=== PATIENT | male | born 1940 | race Caucasian/White ===

== ENCOUNTER → 2018-09-03 | Outpatient (REF) | payer MEDICARE, BC ==
[~2018-09-03] MED LIST: AMLODIPINE10 MG PO; AMLODIPINE5 MG PO; AMOXICILLIN500 MG PO; BAYER ASPIRIN325 MG PO; BENAZEPRIL10 M1 PO; BENAZEPRIL20 M1 PO; FLEXERIL5 M1 PO; HYDROCHLOROT12.5 MG PO; KEFLEX500 M1 PO; LOTREL 5/101 CAP; LOTREL 5/101 CAP PO; LOTREL1 CA1 PO; NORVASC10 M1 PO; PRILOSEC40 MG PO; [UNRECOGNIZED DRUG - OTHER] XX
== END | disposition home or self-care (01) ==
LOC: LABSPEC 09:28
PROVIDERS: ATTEND Nurse Practitioner Adult Health
DX: L02.414 Cutaneous abscess of left upper limb (principal); B95.7 Other staphylococcus as the cause of diseases classified elsewhere

== ENCOUNTER → 2019-02-16 | Outpatient (REF) | payer MEDICARE, BC ==
[2019-02-16 10:05] LABS: HEMATOCRIT 48.4 % (39.0-50.0); HEMOGLOBIN 15.9 g/dl (14.0-18.0); MEAN CELL VOLUME 90.5 fL CALC (80.0-100.0); MEAN CORPUSCULAR HGB 29.7 pG CALC (26.0-32.0); MEAN CORPUSCULAR HGB CONC 32.9 g/L CALC (32.0-36.0); RED BLOOD COUNT 5.35 mill/uL (4.70-6.10); RED CELL DISTRI WIDTH 13.3 % (11.5-15.5)
[2019-02-16 10:28] LABS: ALBUMIN 3.8 g/dL (3.2-5.0); ALKALINE PHOSPHATASE 368 u/l (38-126); ANION GAP 13 (6-22 (CALC)); BILIRUBIN, TOTAL 0.8 mg/dL (0.0-1.4); BUN 17 mg/dL (8-23); BUN/CREATININE RATIO 15 (12-20 (CALC)); CALCULATED LDLCHOLESTEROL 65 mg/dL (62-129 (CALC)); CARBON DIOXIDE 29 mmol/l (22-30); CHLORIDE 103 mmol/l (95-108); CHOLESTEROL HDL RATIO 3.2 (<4.4 (CALC)); CREATININE 1.1 mg/dL (0.7-1.3); GFR > 60 ML/MIN (>=60 (CALC)); GFR FOR AFR.AMER. > 60 ML/MIN (>=60 (CALC)); HDL CHOLESTEROL 36 mg/dL (>=40); POTASSIUM 4.5 mmol/l (3.5-5.1); SGOT/AST 14 u/l (19-48); SODIUM 140 mmol/l (137-146); TOTAL CHOLESTEROL 115 mg/dl (0-199); TOTAL PROTEIN 6.7 g/dL (6.3-8.2); TOTAL TRIGLYCERIDES 74 mg/dl (30-149); VLDL CHOLESTROL 15 mg/dl (0-38 (CALC))
[2019-02-16 11:02] LABS: TSH, 3RD GENERATION 2.06 uIU/mL (0.47 - 4.68)
== END | disposition home or self-care (01) ==
LOC: LAB 09:33
PROVIDERS: ATTEND Nurse Practitioner Adult Health
DX: I10 Essential (primary) hypertension (principal); Z12.5 Encounter for screening for malignant neoplasm of prostate

== ENCOUNTER 2020-10-09 06:43 | Emergency (ER) | payer MEDICARE, BC ==
[~2020-10-09] VITALS: Ht 182.9 cm; Wt 97.0 kg
[2020-10-09] MEDS ORDERED: PARKINSON MED PO (07:06)
[2020-10-09] MEDS ORDERED: ULTRAM50 MG PO (08:13)
[2020-10-09 08:32] VITALS: BP 143/85
== END 2020-10-09 08:31 | disposition home or self-care (01) ==
LOC: ED 06:43
DX: S63.502A Unspecified sprain of left wrist, initial encounter (principal); I10 Essential (primary) hypertension; G20 Parkinson's disease; X50.0XXA Overexertion from strenuous movement or load, initial encounter; Y93.89 Activity, other specified; Y92.009 Unspecified place in unspecified non-institutional (private) residence as the place of occurrence of the external cause

== ENCOUNTER 2022-09-13 08:47 | Day surgery (SDC) | payer MEDICARE, BC ==
[~2022-09-13] VITALS: Ht 182.9 cm; Wt 97.5 kg
[~2022-09-13 08:47] MED LIST changes: +CARB/LEVO1 TA5 PO; +METAMUCIL28 % PO; +MIRALAX17 GM/SCOO; +PARKINSON MED PO; +ULTRAM50 MG PO
[2022-09-13] MEDS ORDERED: PERCOCET 5/321 COMBO PO (12:10)
[2022-09-13 16:14] VITALS: BP 130/79
== END 2022-09-13 17:29 | disposition home or self-care (01) ==
LOC: ORM 08:47
PROVIDERS: ATTEND Surgery
PROC: 0YU50JZ Supplement Right Inguinal Region with Synthetic Substitute, Open Approach (ICD-10-PCS; principal; 2022-09-13)
PROC: 0WUF0JZ Supplement Abdominal Wall with Synthetic Substitute, Open Approach (ICD-10-PCS; 2022-09-13)
DX: K40.90 Unilateral inguinal hernia, without obstruction or gangrene, not specified as recurrent (principal); K42.9 Umbilical hernia without obstruction or gangrene; I10 Essential (primary) hypertension; G20 Parkinson's disease
CPT/HCPCS: C9290; J0131